=== PATIENT | male | born 1965 | race Caucasian/White ===

== ENCOUNTER 2018-11-23 16:30 | Emergency (ER) | payer BC ==
[~2018-11-23] VITALS: Ht 170.2 cm; Wt 126.2 kg
[2018-11-23 16:30] VITALS: BP 151/88
[2018-11-23] MEDS ORDERED: LIDOCAINE 2% 20 ML VIAL. ONE (16:42)
[2018-11-23] MEDS ORDERED: LIDOCAINE 2% 20 ML VIAL. IJ ONE (16:45)
[2018-11-23] MEDS ORDERED: DIPHTH,PERTUSS(ACELL),TET TOX 0.5 ML DISP.SYRIN. VAX IM ONE (17:15)
--- NOTE | 2018-11-23 17:28 | PHYS DOC ---
Past History Past Medical History: Hypertension Past Surgical History: No Surgical History Alcohol Use: Occasionally Drug Use: None Adult General Chief Complaint Chief Complaint: LACERATION/AVULSION HPI HPI Patient is a 53-year-old male presenting with laceration to the right wrist. 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 no numbness Current Medications Current Medications Current Medications Medications (Trade) Dose Ordered Sig/Adan Start Time Stop Time Status Last Admin Dose Admin Diphtheria/ Tetanus/Acell Pertussis (Boostrix) 0.5 ml ONCE ONCE 11/23/18 17:15 11/23/18 17:15 DC 11/23/18 17:07 0.5 ML Lidocaine HCl 20 ml 1X ONCE 11/23/18 16:45 11/23/18 16:47 DC 11/23/18 16:44 20 ML Allergies Allergies Allergies Coded Allergies Type Severity Reaction Last Updated Verified No Known Drug Allergies 11/23/18 No Physical Exam Physical Exam Constitutional: Well developed, well nourished, no acute distress, non-toxic appearance. [] HENT: Normocephalic, atraumatic, bilateral external ears normal, oropharynx moist, no oral exudates, nose normal. [] Eyes: PERRLA, EOMI, conjunctiva normal, no discharge. [] Neck: Normal range of motion, no tenderness, supple, no stridor. [] Pulmonary: Normal respiratory effort no increased work of breathing no obvious chest wall trauma Abdomen: Bowel sounds normal, soft, no tenderness, no masses, no pulsatile masses. [] Skin: Laceration 3 cm is noted to the right wrist volar aspect approximately 1 cm ulnar to the radial artery Back: No tenderness, no CVA tenderness. [] Extremities: No tenderness, no cyanosis, no clubbing, ROM intact, no edema. [] Neurologic: Alert and oriented X 3, normal motor function, normal sensory function, no focal deficits noted. [] Psychologic: Affect normal, judgement normal, mood normal. [] Current Patient Data Vital Signs Vital Signs Date Time Temp Pulse Resp B/P (MAP) Pulse Ox O2 Delivery O2 Flow Rate FiO2 11/23/18 16:30 97.8 86 16 98 Room Air Lab Results Mild Temperature (Fahrenheit): * 97.8 degrees F (97.6-99.5) Patient Temperature * 97.8 degrees F (97.5-99.5) Temperature Source * Oral Blood Pressure Systolic * 151 mm Hg (100-140) H Blood Pressure Diastolic * 88 mm Hg (60-100) Blood Pressure Mean * 109 mm Hg Pulse Rate * 86 beats per minute (60-90) Respiratory Rate * 16 breaths per minute (12-24) Oxygen Delivery Method * Room Air Bedside Pulse Oximetry * 98 % Treatment Prior to Arrival * No Complaint of Pain * Yes Pain Assessment Label * Right * Pain Location Wrist EKG EKG [] Radiology/Procedures Radiology/Procedures [] Course & Med Decision Making Course & Med Decision Making Pertinent Labs and Imaging studies reviewed. (See chart for details) []Laceration repair: Verbal consent obtained wound was irrigated and no foreign body 2% lidocaine was used for subcutaneous cutaneous anesthesia simple interrupted 4-0 nylon simple interrupted sutures were used good skin closure. Patient tolerated well STRUCTURES PROVIDED 5 STITCHES Dragon Disclaimer Dragon Disclaimer This electronic medical record was generated, in whole or in part, using a voice recognition dictation system. Departure Departure: Impression: Primary Impression: Laceration Disposition: 01 HOME, SELF-CARE Condition: STABLE Patient Instructions: Laceration Care, Adult WILBERTO NICHOLE MD Nov 23, 2018 17:28
== END 2018-11-23 17:14 | disposition home or self-care (01) ==
LOC: ER 16:30
DX: S61.511A Laceration without foreign body of right wrist, initial encounter (principal); I10 Essential (primary) hypertension; W45.8XXA Other foreign body or object entering through skin, initial encounter; Y93.89 Activity, other specified; Y92.89 Other specified places as the place of occurrence of the external cause; Y99.8 Other external cause status
CPT/HCPCS: 12002; 90471; 90715; 99283; J2001

== ENCOUNTER 2018-12-04 17:45 | Emergency (ER) | payer BC ==
[~2018-12-04] VITALS: Ht 170.2 cm; Wt 120.9 kg
[2018-12-04 17:54] VITALS: BP 171/97
--- NOTE | 2018-12-04 18:19 | PHYS DOC ---
Past History Past Medical History: Hypertension Past Surgical History: No Surgical History Alcohol Use: Occasionally Drug Use: None Adult General Chief Complaint Chief Complaint: SUTURE/STAPLE REMOVAL HPI HPI 53-year-old male presents for suture removal. He had 5 sutures put in his right wrist about 10 days ago. There are 3 left. He thinks it's time to get them out. He has had no complications. He has no other complaints. Review of Systems Review of Systems Constitutional: Denies fever or chills [] Eyes: Denies change in visual acuity, redness, or eye pain [] HENT: Denies nasal congestion or sore throat [] Respiratory: Denies cough or shortness of breath [] Cardiovascular: No additional information not addressed in HPI [] GI: Denies abdominal pain, nausea, vomiting, bloody stools or diarrhea [] : Denies dysuria or hematuria [] Musculoskeletal: Denies back pain or joint pain [] Integument: Sutures right wrist[] Neurologic: Denies headache, focal weakness or sensory changes [] Endocrine: Denies polyuria or polydipsia [] All other systems were reviewed and found to be within normal limits, except as documented in this note. Allergies Allergies Allergies Coded Allergies Type Severity Reaction Last Updated Verified No Known Drug Allergies 11/23/18 No Physical Exam Physical Exam Constitutional: Well developed, well nourished, no acute distress, non-toxic appearance. [] HENT: Normocephalic, atraumatic, bilateral external ears normal, oropharynx moist, no oral exudates, nose normal. [] Eyes: PERRLA, EOMI, conjunctiva normal, no discharge. [] Neck: Normal range of motion, no tenderness, supple, no stridor. [] Cardiovascular:Heart rate regular rhythm, no murmur [] Lungs & Thorax: Bilateral breath sounds clear to auscultation [] Abdomen: Bowel sounds normal, soft, no tenderness, no masses, no pulsatile masses. [] Skin: 3 sutures in the right wrist, skin well healed.[] Back: No tenderness, no CVA tenderness. [] Extremities: No tenderness, no cyanosis, no clubbing, ROM intact, no edema. [] Neurologic: Alert and oriented X 3, normal motor function, normal sensory function, no focal deficits noted. [] Psychologic: Affect normal, judgement normal, mood normal. [] Current Patient Data Vital Signs Vital Signs Date Time Temp Pulse Resp B/P (MAP) Pulse Ox O2 Delivery O2 Flow Rate FiO2 12/04/18 17:54 98.2 81 18 96 Room Air EKG EKG [] Radiology/Procedures Radiology/Procedures [] Course & Med Decision Making Course & Med Decision Making Pertinent Labs and Imaging studies reviewed. (See chart for details) We have removed the patient's sutures without complication. He is stable for discharge at this time. [] Dragon Disclaimer Dragon Disclaimer This electronic medical record was generated, in whole or in part, using a voice recognition dictation system. Departure Departure: Impression: Primary Impression: Encounter for removal of sutures Disposition: HOME, SELF-CARE Condition: STABLE Referrals: MARA LE (PCP) Patient Instructions: Suture Removal-Brief LIBORIO JAMES DO Dec 04, 2018 18:19
== END 2018-12-04 18:25 | disposition home or self-care (01) ==
LOC: ER 17:45
DX: Z48.01 Encounter for change or removal of surgical wound dressing (principal); I10 Essential (primary) hypertension
CPT/HCPCS: 99281